=== PATIENT | male | born 2000 | race Caucasian/White ===

== ENCOUNTER 2021-07-30 23:36 | Emergency (ER) | payer MEDICAID, SELFPAY ==
[2021-07-30 23:45] VITALS: BP 132/77; PULSE 116; RESP 18; TEMP 36.5; O2SAT 96
--- NOTE | 2021-07-30 23:49 | ED.GENADUL_ITS ---
Discharge Plan Disposition Patient Disposition: HOME Condition: Stable Discharge Details Clinical Impression: Pneumonia due to COVID-19 virus Primary Care Provider: Maira,Local ED Provider: Gerson Simmonss and New Rx's Prescriptions: Continued dextroamphetamine-amphetamine [Adderall] 20 mg Tablet 20 mg PO BID RF: 0 Discharge Instructions Instructions: Pulse Oximetry (ED), COVID-19 (Coronavirus Disease 2019) (ED) Additional Instructions: No blood clot on scan, just evidence of COVID pneumonia. Continue to isolate. Use Tylenol or Motrin for pain/fever. Try dextromethorphan for cough. Rest and stay hydrated. Use pulse ox periodically. If oxygen level consistently below 90 return to ED. Follow up with PCP in 7-10 days if not improving. Discharge Data Discharge Date/Time-TO BE ENTERED AT DEPARTURE: 07/31/21 01:29 Medical Decision Making Young male with COVID presenting with complaint of shortness of breath. This appears to be in relation to coughing spasm and possibly laryngospasm which has since resolved. Still complains of pleuritic chest pain. He is tachycardic. Saturations are mid 90s. Doubt this is PE but he is not febrile and has been eating and drinking normally so must consider tachycardia as a possibility of presenting PE. IV established and CBC/chemistry sent. CTA of the chest obtained. White count is a little low otherwise labs unremarkable. CTA of the chest negative for PE. He does have bilateral scattered alveolar infiltrate likely consistent with his COVID. Patient will be discharged home with pulse oximeter. May use dextromethorphan for cough. Ibuprofen or acetaminophen for fever and pain. Continue to isolate. Return to ED for worsening pulse oximetry, shortness of breath, new or worse chest pain, other concerns. Lab Data Lab results reviewed: Yes I reviewed the patient's lab results. HPI General Mode of arrival: ambulatory . Date/Time Provider Initiated Documentation: 07/30/21 23:48 . Limitations to Documentation: no limitations . Information obtained by: patient and RN notes reviewed . HPI Narrative: Patient presents to ED with complaint of shortness of breath. Patient began having URI type symptoms on the . Tested for Covid on the . Was found positive on the . Continues to have fever, cough, congestion. He denies having any GI symptoms. Does describe pleuritic chest pain that began after he started to have symptoms and had been coughing a lot. Netta woke up and began having coughing spasm. Could not catch his breath and felt very short of breath. Here still with cough but denies shortness of breath. Does complain of pleuritic chest pain. Denies leg pain or leg swelling. Related Data Home Medications Medication Instructions Recorded Confirmed dextroamphetamine-amphetamine 20 mg PO BID 07/31/21 07/31/21 [Adderall] Allergies Allergy/AdvReac Type Severity Reaction Status Date / Time vancomycin AdvReac Intermediate Topical Unverified 07/31/21 00:22 Irritation General Stated Complaint: SOB LEVAR: 3 Review of Systems Narrative: As documented in HPI otherwise negative as below. Const: no weakness Resp: cough, SOB, pleuritic pain CV: no diaphoresis, edema, syncope GI: no abdominal pain, nausea, vomiting, diarrhea Neuro: no numbness, focal weakness, confusion PFSH All Active Problems (Updated 07/31/21 @ 01:02 by Gerson Simmons MD) Pneumonia due to COVID-19 virus (Acute) Medical History Hypercholesterolemia Surgical History No significant past surgical history Social History (Updated 07/31/21 @ 00:08 by Gerson Simmons MD) Smoking/Tobacco Use Status: Current-Occasional Tobacco Type: e-cigarettes Smoking risk assessment performed?: Yes Alcohol Intake: never Drug use: Never Substance use type: does not use Do you feel safe at home: Yes Do you feel safe in your relationship?: Yes Exam Narrative Exam Narrative: Const: Obese male in NAD. HEENT: NC/AT. Normal facial exam. Eyes: Normal conjunctiva and sclera. Neck: Supple. Trachea midline. Lungs: Normal respiratory effort. Lungs with few rhonchi throughout. Cor: RRR without murmur/gallop. Good radial pulses. GI: Soft. NT/ND. Neuro: A+O x 3. Normal speech, mentation, gait. Cranial nerves II - XII grossly intact. No gross motor or sensory deficit. Ext: No C/C/E. No calf tenderness. Skin: Warm and dry without rash. Course Vital Signs Vital signs: Vital Signs Temperature 97.7 F 07/30/21 23:45 Pulse 116 H 07/30/21 23:45 Respiratory Rate 18 07/30/21 23:45 Blood Pressure 132/77 07/30/21 23:45 Pulse Oximetry 96 07/30/21 23:45 Temperature 97.7 F 07/30/21 23:45 Temperature Source Temporal Artery Scan 07/30/21 23:45 Pulse 116 H 07/30/21 23:45 Respiratory Rate 18 07/30/21 23:45 Respiratory Effort 07/30/21 23:48 Respiratory Depth Normal 07/30/21 23:48 Respiratory Pattern Normal 07/30/21 23:48 Blood Pressure 132/77 07/30/21 23:45 Blood Pressure Position Supine 07/30/21 23:45 Pulse Oximetry 96 07/30/21 23:45 Oxygen Delivery Method Room Air 07/30/21 23:45 Oxygen Flow Rate 0 07/30/21 23:45 Pain Level 7 07/30/21 23:45
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
[2021-07-31 00:17] LABS: Abs Immature Grans 0.01 10^3/uL (0.0-0.06); Absolute Basophil Count 0.02 10^3/uL (0.0-0.2); Absolute Eosinophil Count 0.05 10^3/uL (0.0-0.7); Absolute Lymphocyte Count 0.87 10^3/uL (1.2-3.4); Absolute Monocyte Count 0.52 10^3/uL (0.1-0.8); Absolute Neutrophil Count 2.42 10^3/uL (1.2-6.7); Basophils % 0.5; Eosinophils % 1.3; HCT 45.8 % (40.0-50.0); HGB 14.8 g/dL (13.5-17.5); Immature Grans % 0.3; Lymphocytes % 22.4; MCH 27.9 pg (27.0-33.0); MCHC 32.3 % (32.0-36.0); MCV 86.4 fL (80-95); MPV 10.8 fL (8.0-11.0); Monocytes % 13.4; Neutrophils % 62.1; Nucleated RBC 0 %; Platelet Count 195 10^3/uL (130-400); RDW 13.2 % (11.8-14.1); WBC 3.89 10^3/uL (4.4-10.8)
[2021-07-31 00:25] LABS: Anion Gap 9.8 mmol/L (3-11); BUN 10 mg/dL (7-18); CO2 27.2 mmol/L (21.0-32.0); CREATININE 1.3 mg/dL (0.70-1.30); Chloride 102 mmol/L (98-107); Glucose 103 mg/dL (74-106); Potassium 3.6 mmol/L (3.5-5.1); Sodium 139 mmol/L (136-145)
[2021-07-31] MEDS: Omnipaque 350 MG/ML 100 ML BTL IJ (00:45)
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
== END 2021-07-31 01:29 | disposition home or self-care (01) ==
PROVIDERS: Emergency Provider Emergency Medicine
DX: U07.1 COVID-19 (principal); J12.82 Pneumonia due to coronavirus disease 2019; R00.0 Tachycardia, unspecified; R50.9 Fever, unspecified
CPT/HCPCS: 71275; 80048; 99285; 85025; 99283; J3490

== ENCOUNTER 2023-02-06 13:51 | Emergency (ER) | payer SELFPAY ==
[2023-02-06] VITALS (12 sets, daily range): BP systolic 90–119; BP diastolic 55–83; PULSE 100–151; RESP 0–37; TEMP 37.2; O2SAT 92–98
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
[2023-02-06] MEDS: fentaNYL 100 MCG/2 ML VIAL (14:11)
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
[2023-02-06] MEDS: Tranexamic Acid 1,000 MG/10 ML VIAL 1000 MG IVP (14:29)
[2023-02-06] MEDS: cefTRIAXone 1 GM/50 ML BAG IVPB (14:30)
--- NOTE | 2023-02-06 14:33 | NUR.NOTE ---
Nursing Note: 1412 - right chest tube placed by surgery. ~1L out
[2023-02-06] MEDS: Normal Saline 100 ML (14:34)
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
--- NOTE | 2023-02-06 15:23 | NUR.NOTE ---
Nursing Note:Units 3 and 4 given to [facility] crew by LAb. Units were monitored by [facility] crew
[2023-02-06] MEDS: CALCIUM GLUCONATE in NaCl 1 GM/50 ML BAG IVPB (15:34)
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
== END 2023-02-06 15:32 | disposition short-term general hospital (02) ==
PROVIDERS: Emergency Provider Student in an Organized Health Care Education/Training Program
DX: S21.342A Puncture wound with foreign body of left front wall of thorax with penetration into thoracic cavity, initial encounter (principal); J94.2 Hemothorax; T79.4XXA Traumatic shock, initial encounter; J90 Pleural effusion, not elsewhere classified; R40.2412 Glasgow coma scale score 13-15, at arrival to emergency department; W34.00XA Accidental discharge from unspecified firearms or gun, initial encounter
CPT/HCPCS: 32551; 36430; 36556; 86900; 86901; 86920; 96374; 96375; 99291; 71045; J0696; J3010; P9016